=== PATIENT | male | born 1980 | race Caucasian/White ===

== ENCOUNTER 2016-12-25 20:39 | Emergency (ER) | payer MEDICAID ==
[~2016-12-25] VITALS: Ht 170.2 cm; Wt 72.6 kg
[~2016-12-25 20:39] MED LIST: BEN50 PO; OMEP20CA10 PO; PARO12.520 PO; SER100 PO
[2016-12-25 20:40] VITALS: BP_SYST 119
[2016-12-25] MEDS ORDERED: KETOROLAC TROMETHAMINE 60 MG/2 ML VIAL IM ONE (21:15)
[2016-12-25 22:18] VITALS: BP_SYST 119
== END 2016-12-25 22:18 | disposition home or self-care (01) ==
LOC: SED 20:39
DX: S23.3XXA Sprain of ligaments of thoracic spine, initial encounter (principal); S29.011A Strain of muscle and tendon of front wall of thorax, initial encounter; Z88.6 Allergy status to analgesic agent; Z79.899 Other long term (current) drug therapy; Z98.890 Other specified postprocedural states; V89.2XXA Person injured in unspecified motor-vehicle accident, traffic, initial encounter; Y93.89 Activity, other specified; Y92.89 Other specified places as the place of occurrence of the external cause; Y99.8 Other external cause status
CPT/HCPCS: 71010; 72072; 96372; 99284; J1885

== ENCOUNTER 2017-09-03 13:32 | Inpatient (IN) | payer MEDICAID ==
[~2017-09-03] VITALS: Ht 170.2 cm; Wt 83.9 kg
[~2017-09-03 13:32] MED LIST changes: +DEXAMETHASONE SOD PHOSPHATE 4 MG/ML VIAL IVP ONE; +EMTR1TAB14 PO; +FURO-150 PO; +GLYCOPYRROLATE 0.2 MG/ML VIAL IJ ONE; +KETOROLAC TROMETHAMINE 30 MG VIAL IVP ONE; +LIDOCAINE 1% 10 MG/ML, 20 ML MDV INJ ONE; +LR 1,000 ML IV.SOLN IV ONE; +MIDAZOLAM HCL 5 MG/5 ML VIAL IVP ONE; +MORPHINE SULFATE 10 MG/ML VIAL IVP ONE; +NEOSTIGMINE METHYLSULFATE 1 MG/ML, 10 ML VIAL IVP ONE; +NS IRRIG SOLN 1000 ML IR ONE; +ONDANSETRON HCL 4 MG/2 ML VIAL IVP ONE; -PARO12.520 PO; +ROCURONIUM BROMIDE 10 MG/ML (ZEMURON) IV ONE; +SEVOFLURANE 15 MIN GAS INH ONE; +SUCCINYLCHOLINE CHLORIDE 20 MG/ML(QUELICIN) IVP ONE; +VIS25 PO; +cefOXitin SODIUM 2 GM/VIAL (MEFOXIN) IV ONE; +fentaNYL CITRATE 250 MCG/5 ML AMP IV ONE
[2017-09-03 13:40] VITALS: BP_SYST 116
[2017-09-03] MEDS ORDERED: ONDANSETRON HCL 4 MG/2 ML VIAL IVP ONE ×2 (14:15→17:15)
[2017-09-03] MEDS ORDERED: MORPHINE 4 MG/ML INJ. SYRINGE IVP ONE (14:15)
[2017-09-03] MEDS ORDERED: NACL 0.9% 1,000 ML IV ONE ×2 (15:00→23:15)
[2017-09-03 15:12] LABS: BASOPHILS # (AUTO) 0.1 K/uL (0.0-0.2); BASOPHILS % (AUTO) 0.8 % (0.0-2.0); EOSINOPHILS % (AUTO) 0.2 % (0.0-4.0); HEMATOCRIT 48.8 % (36-54); HEMOGLOBIN 15.9 g/dL (14.0-18.0); LYMPHOCYTES # (AUTO) 1.1 K/uL (1.0-5.5); LYMPHOCYTES % (AUTO) 7.8 % (20.5-51.5); MEAN CORPUSCULAR HEMOGLOBIN 29 pg (27-31); MEAN CORPUSCULAR HGB CONC 33 % (32-36); MEAN CORPUSCULAR VOLUME 89 fL (79.0-98.0); MONOCYTES # (AUTO) 0.8 K/uL (0.0-1.0); MONOCYTES % (AUTO) 5.4 % (1.7-9.3); NEUTROPHILS # (AUTO) 12.4 K/uL (1.8-7.7); NEUTROPHILS % (AUTO) 85.8 % (40.0-70.0); PLATELET COUNT (AUTO) 355 K/uL (130-430); RED BLOOD CELL COUNT(AUTO) 5.47 MIL/uL (4.2-6.2); RED CELL DISTRIBUTION WIDTH 17.2 % (9.0-15.0); WHITE BLOOD COUNT (AUTO) 14.4 K/uL (4.8-10.8)
[2017-09-03 15:25] LABS: CALCIUM 10.3 mg/dL (8.4-11.0); POTASSIUM 3.9 mmol/L (3.5-5.1)
[2017-09-03 15:29] LABS: TOTAL BILIRUBIN 0.5 mg/dL (0.0-1.0)
[2017-09-03 15:32] LABS: BILIRUBIN,URINE NEGATIVE (NEGATIVE); BLOOD, URINE NEGATIVE (NEGATIVE); CLARITY/URINE CLEAR (CLEAR); COLOR,URINE YELLOW (YELLOW); GLUCOSE,URINE NEGATIVE (NEGATIVE); KETONES,URINE NEGATIVE (NEGATIVE); LEUKOCYTE ESTERASE ,URINE NEGATIVE (NEGATIVE); NITRITE, URINE NEGATIVE (NEGATIVE); PH,URINE 8.5 (5.0-8.0); PROTEIN URINE 2+ (NEGATIVE)
[2017-09-03 15:33] LABS: PROTHROMBIN TIME 10.3 SECS (9.5-12.5)
[2017-09-03 15:35] LABS: BACTERIA,URINE RARE /HPF (None Seen); RBC,URINE 0-3 /HPF (0-3); WBC,URINE 0-3 /HPF (0-3)
[2017-09-03] MEDS ORDERED: IOHEXOL 100 ML IV ONE (16:01)
[2017-09-03] MEDS ORDERED: CYM30 PO (16:03)
[2017-09-03] MEDS ORDERED: EMTR1TAB12 PO (16:03)
[2017-09-03] MEDS ORDERED: LORazepam 2 MG/ML VIAL (FOR ER USE) IVP ONE (17:00)
[2017-09-03] MEDS ORDERED: MORPHINE 2 MG/ML INJ. SYRINGE IVP ONE (17:00)
[2017-09-03] MEDS ORDERED: METOCLOPRAMIDE HCL 10 MG/2 ML VIAL IVP ONE (18:00)
[2017-09-03 18:30] VITALS: BP_SYST 129
[2017-09-03] MEDS ORDERED: MORPHINE 4 MG/ML INJ. SYRINGE IVP PRN ×2 (19:30)
[2017-09-03 20:00] VITALS: BP_SYST 146
[2017-09-03] MEDS: ONDANSETRON HCL 4 MG/2 ML VIAL IVP PRN (20:09)
[2017-09-03] MEDS: D5LR 1,000 ML IV SCH (20:18)
[2017-09-03] MEDS: DIPHENHYDRAMINE INJ 50 MG/ML VIAL IVP SCH (21:56)
[2017-09-04] MEDS ORDERED: PIPERACILLIN/TAZOBACTAM 3.375 GM/VIAL (ZOSYN) IV ONE (00:18)
[2017-09-04] MEDS: PIPERACILLIN/TAZO 3.375/DEX-IS 50 ML IV SCH ×3 (00:24→11:35)
[2017-09-04] MEDS: ONDANSETRON HCL 4 MG/2 ML VIAL IVP PRN ×3 (00:28→09:20)
[2017-09-04] MEDS: MORPHINE 4 MG/ML INJ. SYRINGE IVP PRN ×5 (00:28→21:32)
[2017-09-04 01:58] VITALS: BP_SYST 124
[2017-09-04] MEDS: D5LR 1,000 ML IV SCH ×4 (03:49→21:45)
[2017-09-04 06:49] LABS: CALCIUM 8.8 mg/dL (8.4-11.0); CREATININE 0.87 mg/dL (0.55-1.30); POTASSIUM 4.2 mmol/L (3.5-5.1)
[2017-09-04 07:15] LABS: BASOPHILS % (AUTO) 0.1 % (0.0-2.0); EOSINOPHILS % (AUTO) 0.1 % (0.0-4.0); HEMATOCRIT 46.1 % (36-54); HEMOGLOBIN 15.1 g/dL (14.0-18.0); LYMPHOCYTES # (AUTO) 0.7 K/uL (1.0-5.5); LYMPHOCYTES % (AUTO) 3.4 % (20.5-51.5); MEAN CORPUSCULAR HEMOGLOBIN 29 pg (27-31); MEAN CORPUSCULAR HGB CONC 33 % (32-36); MEAN CORPUSCULAR VOLUME 90 fL (79.0-98.0); MONOCYTES # (AUTO) 1.2 K/uL (0.0-1.0); NEUTROPHILS # (AUTO) 18.8 K/uL (1.8-7.7); PLATELET COUNT (AUTO) 344 K/uL (130-430); RED BLOOD CELL COUNT(AUTO) 5.13 MIL/uL (4.2-6.2); RED CELL DISTRIBUTION WIDTH 17.2 % (9.0-15.0); WHITE BLOOD COUNT (AUTO) 20.7 K/uL (4.8-10.8)
[2017-09-04 08:00] VITALS: BP_SYST 128
[2017-09-04] MEDS ORDERED: GASTROGRAFIN 120 ML ONE (08:09)
[2017-09-04 10:31] LABS: NEUTROPHILS % (AUTO) 90.4 % (40.0-70.0)
[2017-09-04 12:28] VITALS: BP_SYST 131
[2017-09-04 16:00] VITALS: BP_SYST 130
[2017-09-04] MEDS ORDERED: KETOROLAC TROMETHAMINE 30 MG VIAL IM ONE (16:00)
[2017-09-04] MEDS ORDERED: fentaNYL CITRATE/PF 100 MCG/2 ML AMP IVP PRN (16:00)
[2017-09-04] MEDS ORDERED: MIDAZOLAM HCL 5 MG/5 ML VIAL IVP PRN (16:00)
[2017-09-04] MEDS ORDERED: NALOXONE HCL 0.4 MG/ML AMP (NARCAN) IVP ONE (16:00)
[2017-09-04] MEDS ORDERED: HYDROmorphone 1 MG INJ. 1 MG/ML AMPUL IVP ONE (16:00)
[2017-09-04] MEDS ORDERED: ONDANSETRON HCL 4 MG/2 ML VIAL IVP ONE (16:00)
[2017-09-04] MEDS: fentaNYL CITRATE/PF 100 MCG/2 ML AMP ONE ×2 (16:05→16:25)
[2017-09-04 17:54] VITALS: BP_SYST 143
[2017-09-04] MEDS: DIPHENHYDRAMINE INJ 50 MG/ML VIAL IVP SCH (21:29)
[2017-09-04] MEDS: cefOXitin SODIUM 2 GM in D5W 100 ML IV SCH (21:42)
[2017-09-04] MEDS: LORazepam 2 MG/ML VIAL IVP PRN (23:55)
[2017-09-05 00:12] VITALS: BP_SYST 127
[2017-09-05] MEDS: MORPHINE 4 MG/ML INJ. SYRINGE IVP PRN ×6 (01:37→21:07)
[2017-09-05] MEDS: ACETAMINOPHEN 650 MG SUPP.RECT RC PRN ×2 (02:52→16:22)
[2017-09-05 04:12] VITALS: BP_SYST 124
[2017-09-05] MEDS: cefOXitin SODIUM 2 GM in D5W 100 ML IV SCH ×3 (05:56→21:21)
[2017-09-05] MEDS: LORazepam 2 MG/ML VIAL IVP PRN (05:56)
[2017-09-05] MEDS: D5LR 1,000 ML IV SCH ×3 (05:56→18:08)
[2017-09-05 08:00] VITALS: BP_SYST 128
[2017-09-05 10:47] LABS: HEMATOCRIT 33.5 % (36-54); HEMOGLOBIN 11.2 g/dL (14.0-18.0); MEAN CORPUSCULAR HEMOGLOBIN 30 pg (27-31); MEAN CORPUSCULAR HGB CONC 33 % (32-36); MEAN CORPUSCULAR VOLUME 90 fL (79.0-98.0); PLATELET COUNT (AUTO) 287 K/uL (130-430); RED BLOOD CELL COUNT(AUTO) 3.71 MIL/uL (4.2-6.2); RED CELL DISTRIBUTION WIDTH 17.6 % (9.0-15.0)
[2017-09-05 11:11] LABS: WHITE BLOOD COUNT (AUTO) 12.9 K/uL (4.8-10.8)
[2017-09-05 11:18] LABS: CALCIUM 8.1 mg/dL (8.4-11.0); CREATININE 1.07 mg/dL (0.55-1.30)
[2017-09-05 11:24] LABS: ALBUMIN 2.3 g/dL (3.4-4.8); TOTAL BILIRUBIN 0.6 mg/dL (0.0-1.0)
[2017-09-05 11:56] LABS: BAND % (MANUAL) 11 % (0-6); BASOPHILS % (MANUAL) 0 % (0-2); EOSINOPHILS % (MANUAL) 1 % (0-7); LYMPHOCYTES % (MANUAL) 9 % (20-46); MONOCYTES % (MANUAL) 6 % (0-11)
[2017-09-05 12:35] VITALS: BP_SYST 123
[2017-09-05] MEDS ORDERED: DILTIAZEM HCL 25 MG/5 ML VIAL IVP ONE (15:45)
[2017-09-05 16:00] VITALS: BP_SYST 128
[2017-09-05 16:06] LABS: FREE T4 (FREE THYROXINE) 1.4 ng/dl (0.8-1.5); THYROID STIMULATING HORMONE 2.01 uIu/mL (0.36-3.74)
[2017-09-05] MEDS ORDERED: TENOFOVIR PO SCH (17:45)
[2017-09-05] MEDS ORDERED: EMTRICITABINE PO SCH (17:45)
[2017-09-05] MEDS ORDERED: [UNRECOGNIZED DRUG - OTHER] PO SCH (17:45)
[2017-09-05] MEDS: MUPIROCIN 2% TOPICAL OINTMENT 22 GM NS SCH ×2 (18:08→21:13)
[2017-09-05] MEDS: VANCOMYCIN HCL 1,250 MG in NS 250 ML IV SCH (18:09)
[2017-09-05] MEDS: METOPROLOL TARTRATE 25 MG TABLET PO SCH ×2 (18:32→21:10)
[2017-09-05] MEDS: DULoxetine HCL 30 MG CAPSULE.DR (CYMBALTA) PO SCH (18:32)
[2017-09-05] MEDS: FAMOTIDINE PF 20 MG/2 ML VIAL IVP SCH ×2 (18:33→21:14)
[2017-09-05 20:30] VITALS: BP_SYST 116
[2017-09-05] MEDS: DIPHENHYDRAMINE INJ 50 MG/ML VIAL IVP SCH (21:07)
[2017-09-05] MEDS: OMEPRAZOLE 20 MG CAPSULE.DR (PriLOSEC) PO SCH (21:09)
[2017-09-05] MEDS: FUROSEMIDE 20 MG TABLET PO SCH (21:09)
[2017-09-05] MEDS: QUEtiapine FUMARATE 100 MG TABLET PO SCH (21:09)
[2017-09-05] MEDS: DIPHENHYDRAMINE HCL 50 MG CAPSULE PO SCH (21:10)
[2017-09-06 00:13] VITALS: BP_SYST 118
[2017-09-06] MEDS: D5LR 1,000 ML IV SCH ×4 (01:05→21:34)
[2017-09-06] MEDS: VANCOMYCIN HCL 1,250 MG in NS 250 ML IV SCH ×2 (06:00→18:00)
[2017-09-06] MEDS: cefOXitin SODIUM 2 GM in D5W 100 ML IV SCH ×3 (06:00→21:48)
[2017-09-06 07:25] LABS: BASOPHILS % (AUTO) 0.3 % (0.0-2.0); EOSINOPHILS # (AUTO) 0.1 K/uL (0.0-0.4); EOSINOPHILS % (AUTO) 1.8 % (0.0-4.0); HEMATOCRIT 26.9 % (36-54); HEMOGLOBIN 9.1 g/dL (14.0-18.0); LYMPHOCYTES % (AUTO) 12.8 % (20.5-51.5); MEAN CORPUSCULAR HEMOGLOBIN 31 pg (27-31); MEAN CORPUSCULAR HGB CONC 34 % (32-36); MEAN CORPUSCULAR VOLUME 90 fL (79.0-98.0); MONOCYTES # (AUTO) 1.3 K/uL (0.0-1.0); MONOCYTES % (AUTO) 17.2 % (1.7-9.3); NEUTROPHILS # (AUTO) 5.2 K/uL (1.8-7.7); NEUTROPHILS % (AUTO) 67.9 % (40.0-70.0); PLATELET COUNT (AUTO) 237 K/uL (130-430); RED BLOOD CELL COUNT(AUTO) 2.99 MIL/uL (4.2-6.2); RED CELL DISTRIBUTION WIDTH 16.7 % (9.0-15.0); WHITE BLOOD COUNT (AUTO) 7.6 K/uL (4.8-10.8)
[2017-09-06 07:26] LABS: CALCIUM 8.3 mg/dL (8.4-11.0); CREATININE 0.92 mg/dL (0.55-1.30); POTASSIUM 3.6 mmol/L (3.5-5.1)
[2017-09-06 07:30] LABS: INR 1.1 (0.80-1.20)
[2017-09-06 08:00] VITALS: BP_SYST 120
[2017-09-06] MEDS: FAMOTIDINE PF 20 MG/2 ML VIAL IVP SCH ×2 (09:00→21:41)
[2017-09-06] MEDS: DULoxetine HCL 30 MG CAPSULE.DR (CYMBALTA) PO SCH (09:34)
[2017-09-06] MEDS: MUPIROCIN 2% TOPICAL OINTMENT 22 GM NS SCH ×2 (09:34→21:42)
[2017-09-06] MEDS: METOPROLOL TARTRATE 25 MG TABLET PO SCH ×3 (09:35→21:00)
[2017-09-06] MEDS: FUROSEMIDE 20 MG TABLET PO SCH ×2 (09:35→21:00)
[2017-09-06] MEDS: MORPHINE 4 MG/ML INJ. SYRINGE IVP PRN ×2 (10:05→21:15)
[2017-09-06 11:54] VITALS: BP_SYST 107
[2017-09-06] MEDS ORDERED: MULTIVITAMINS TAB 1 TABLET PO ONE (15:30)
[2017-09-06 16:00] VITALS: BP_SYST 122
[2017-09-06] MEDS: SOD FERRIC GLUC COMPLEX/SUC 125 MG in NS 100 ML IV SCH (16:00)
[2017-09-06 20:00] VITALS: BP_SYST 98
[2017-09-06] MEDS: DIPHENHYDRAMINE INJ 50 MG/ML VIAL IVP SCH (21:40)
[2017-09-06] MEDS: DIPHENHYDRAMINE HCL 50 MG CAPSULE PO SCH (21:42)
[2017-09-06] MEDS: QUEtiapine FUMARATE 100 MG TABLET PO SCH (21:43)
[2017-09-06] MEDS: MULTIVITAMINS TAB 1 TABLET PO SCH (21:43)
[2017-09-06] MEDS: OMEPRAZOLE 20 MG CAPSULE.DR (PriLOSEC) PO SCH (21:43)
[2017-09-07] MEDS: D5LR 1,000 ML IV SCH ×3 (03:45→17:58)
[2017-09-07] MEDS: MORPHINE 4 MG/ML INJ. SYRINGE IVP PRN ×4 (04:05→20:07)
[2017-09-07 04:28] VITALS: BP_SYST 114
[2017-09-07] MEDS: cefOXitin SODIUM 2 GM in D5W 100 ML IV SCH ×4 (05:07→22:47)
[2017-09-07] MEDS: VANCOMYCIN HCL 1,250 MG in NS 250 ML IV SCH ×2 (06:00→17:58)
[2017-09-07 07:35] LABS: BASOPHILS % (AUTO) 0.2 % (0.0-2.0); EOSINOPHILS # (AUTO) 0.1 K/uL (0.0-0.4); EOSINOPHILS % (AUTO) 1.3 % (0.0-4.0); HEMATOCRIT 29.4 % (36-54); HEMOGLOBIN 9.9 g/dL (14.0-18.0); LYMPHOCYTES # (AUTO) 0.4 K/uL (1.0-5.5); LYMPHOCYTES % (AUTO) 6.7 % (20.5-51.5); MEAN CORPUSCULAR HEMOGLOBIN 30 pg (27-31); MEAN CORPUSCULAR HGB CONC 34 % (32-36); MEAN CORPUSCULAR VOLUME 90 fL (79.0-98.0); MONOCYTES # (AUTO) 1.1 K/uL (0.0-1.0); MONOCYTES % (AUTO) 17.7 % (1.7-9.3); NEUTROPHILS # (AUTO) 4.5 K/uL (1.8-7.7); NEUTROPHILS % (AUTO) 74.1 % (40.0-70.0); PLATELET COUNT (AUTO) 293 K/uL (130-430); RED BLOOD CELL COUNT(AUTO) 3.27 MIL/uL (4.2-6.2); RED CELL DISTRIBUTION WIDTH 16.3 % (9.0-15.0); WHITE BLOOD COUNT (AUTO) 6.1 K/uL (4.8-10.8)
[2017-09-07 07:55] LABS: CALCIUM 8.6 mg/dL (8.4-11.0); CREATININE 0.79 mg/dL (0.55-1.30); POTASSIUM 3.2 mmol/L (3.5-5.1)
[2017-09-07 08:10] VITALS: BP_SYST 115
[2017-09-07] MEDS: MULTIVITAMINS TAB 1 TABLET PO SCH ×2 (09:28→20:07)
[2017-09-07] MEDS: MUPIROCIN 2% TOPICAL OINTMENT 22 GM NS SCH ×2 (09:28→20:47)
[2017-09-07] MEDS: FUROSEMIDE 20 MG TABLET PO SCH ×2 (09:28→20:07)
[2017-09-07] MEDS: DULoxetine HCL 30 MG CAPSULE.DR (CYMBALTA) PO SCH (09:28)
[2017-09-07] MEDS: METOPROLOL TARTRATE 25 MG TABLET PO SCH ×3 (09:29→20:10)
[2017-09-07] MEDS: FAMOTIDINE PF 20 MG/2 ML VIAL IVP SCH ×2 (10:33→20:45)
[2017-09-07] MEDS: traMADol HCL HCL 50 MG TABLET (ULTRAM) PO PRN (11:56)
[2017-09-07 12:00] VITALS: BP_SYST 106; BP_SYST 130
[2017-09-07] MEDS: SOD FERRIC GLUC COMPLEX/SUC 125 MG in NS 100 ML IV SCH (15:32)
[2017-09-07 16:00] VITALS: BP_SYST 132
[2017-09-07 17:31] VITALS: BP_SYST 114
[2017-09-07] MEDS ORDERED: POTASSIUM CHLORIDE 20 MEQ TAB.PRT.SR PO ONE (18:00)
[2017-09-07] MEDS: DIPHENHYDRAMINE INJ 50 MG/ML VIAL IVP SCH (20:06)
[2017-09-07] MEDS: OMEPRAZOLE 20 MG CAPSULE.DR (PriLOSEC) PO SCH (20:10)
[2017-09-07] MEDS: QUEtiapine FUMARATE 100 MG TABLET PO SCH (20:10)
[2017-09-07 20:12] VITALS: BP_SYST 125
[2017-09-07] MEDS: DIPHENHYDRAMINE HCL 50 MG CAPSULE PO SCH (20:45)
[2017-09-07] MEDS: POTASSIUM CHLORIDE 20 MEQ TAB.PRT.SR PO SCH (20:46)
[2017-09-08 01:12] VITALS: BP_SYST 126
[2017-09-08] MEDS: MORPHINE 4 MG/ML INJ. SYRINGE IVP PRN (02:28)
[2017-09-08] MEDS: D5LR 1,000 ML IV SCH ×2 (02:29→23:11)
[2017-09-08] MEDS: traMADol HCL HCL 50 MG TABLET (ULTRAM) PO PRN (05:08)
[2017-09-08] MEDS: VANCOMYCIN HCL 1,250 MG in NS 250 ML IV SCH ×2 (05:09→19:00)
[2017-09-08] MEDS: cefOXitin SODIUM 2 GM in D5W 100 ML IV SCH ×3 (06:15→23:04)
[2017-09-08 07:50] VITALS: BP_SYST 142
[2017-09-08] MEDS: DULoxetine HCL 30 MG CAPSULE.DR (CYMBALTA) PO SCH (08:54)
[2017-09-08] MEDS: POTASSIUM CHLORIDE 20 MEQ TAB.PRT.SR PO SCH ×2 (08:54→22:15)
[2017-09-08] MEDS: MULTIVITAMINS TAB 1 TABLET PO SCH ×2 (08:54→21:52)
[2017-09-08] MEDS: MUPIROCIN 2% TOPICAL OINTMENT 22 GM NS SCH ×2 (08:55→23:12)
[2017-09-08] MEDS: METOPROLOL TARTRATE 25 MG TABLET PO SCH ×3 (08:55→21:54)
[2017-09-08] MEDS: FUROSEMIDE 20 MG TABLET PO SCH ×2 (08:55→21:54)
[2017-09-08] MEDS: FAMOTIDINE PF 20 MG/2 ML VIAL IVP SCH ×2 (09:00→21:52)
[2017-09-08 13:13] VITALS: BP_SYST 139
[2017-09-08] MEDS: TRUVADA PO SCH (14:00)
[2017-09-08 16:14] VITALS: BP_SYST 133
[2017-09-08 16:49] LABS: RED CELL DISTRIBUTION WIDTH 15.9 % (9.0-15.0)
[2017-09-08 16:53] LABS: CALCIUM 8.5 mg/dL (8.4-11.0); CREATININE 1.04 mg/dL (0.55-1.30); POTASSIUM 3.6 mmol/L (3.5-5.1)
[2017-09-08 17:01] LABS: EOSINOPHILS % (AUTO) 0.2 % (0.0-4.0); LYMPHOCYTES # (AUTO) 0.5 K/uL (1.0-5.5); LYMPHOCYTES % (AUTO) 2.6 % (20.5-51.5); MONOCYTES # (AUTO) 2.7 K/uL (0.0-1.0); MONOCYTES % (AUTO) 13.1 % (1.7-9.3); NEUTROPHILS # (AUTO) 17.3 K/uL (1.8-7.7); WHITE BLOOD COUNT (AUTO) 20.5 K/uL (4.8-10.8)
[2017-09-08 17:02] LABS: HEMATOCRIT 28.7 % (36-54); HEMOGLOBIN 9.6 g/dL (14.0-18.0); MEAN CORPUSCULAR HEMOGLOBIN 30 pg (27-31); MEAN CORPUSCULAR HGB CONC 34 % (32-36); MEAN CORPUSCULAR VOLUME 90 fL (79.0-98.0); PLATELET COUNT (AUTO) 327 K/uL (130-430)
[2017-09-08 17:25] LABS: NEUTROPHILS % (AUTO) 84.1 % (40.0-70.0)
[2017-09-08] MEDS: SOD FERRIC GLUC COMPLEX/SUC 125 MG in NS 100 ML IV SCH (17:33)
[2017-09-08] MEDS: OXYCODONE/ACETAMINOPHEN 5-325 TABLET PO PRN (19:06)
[2017-09-08] MEDS: DIPHENHYDRAMINE HCL 50 MG CAPSULE PO SCH (21:00)
[2017-09-08] MEDS: OMEPRAZOLE 20 MG CAPSULE.DR (PriLOSEC) PO SCH (22:15)
[2017-09-08] MEDS: QUEtiapine FUMARATE 100 MG TABLET PO SCH (22:16)
[2017-09-08] MEDS: DIPHENHYDRAMINE INJ 50 MG/ML VIAL IVP SCH (23:05)
[2017-09-09 00:22] VITALS: BP_SYST 116
[2017-09-09] MEDS: cefOXitin SODIUM 2 GM in D5W 100 ML IV SCH (05:32)
[2017-09-09] MEDS: VANCOMYCIN HCL 1,250 MG in NS 250 ML IV SCH ×2 (06:31→18:14)
[2017-09-09 07:02] LABS: CALCIUM 8.4 mg/dL (8.4-11.0); CREATININE 1.16 mg/dL (0.55-1.30)
[2017-09-09 07:25] LABS: POTASSIUM 2.9 mmol/L (3.5-5.1)
[2017-09-09 07:48] LABS: BASOPHILS % (AUTO) 0.2 % (0.0-2.0); EOSINOPHILS # (AUTO) 0.4 K/uL (0.0-0.4); HEMATOCRIT 27.7 % (36-54); HEMOGLOBIN 9.2 g/dL (14.0-18.0); LYMPHOCYTES # (AUTO) 0.5 K/uL (1.0-5.5); LYMPHOCYTES % (AUTO) 2.4 % (20.5-51.5); MEAN CORPUSCULAR HEMOGLOBIN 30 pg (27-31); MEAN CORPUSCULAR HGB CONC 33 % (32-36); MEAN CORPUSCULAR VOLUME 90 fL (79.0-98.0); MONOCYTES # (AUTO) 1.5 K/uL (0.0-1.0); MONOCYTES % (AUTO) 7.6 % (1.7-9.3); NEUTROPHILS # (AUTO) 17.9 K/uL (1.8-7.7); NEUTROPHILS % (AUTO) 87.8 % (40.0-70.0); PLATELET COUNT (AUTO) 131 K/uL (130-430); RED BLOOD CELL COUNT(AUTO) 3.08 MIL/uL (4.2-6.2)
[2017-09-09 08:10] VITALS: BP_SYST 135
[2017-09-09] MEDS: METOPROLOL TARTRATE 25 MG TABLET PO SCH ×3 (08:11→22:06)
[2017-09-09] MEDS: DULoxetine HCL 30 MG CAPSULE.DR (CYMBALTA) PO SCH (08:11)
[2017-09-09] MEDS: MULTIVITAMINS TAB 1 TABLET PO SCH ×2 (08:11→22:08)
[2017-09-09] MEDS: FAMOTIDINE PF 20 MG/2 ML VIAL IVP SCH ×2 (08:12→21:00)
[2017-09-09] MEDS: FUROSEMIDE 20 MG TABLET PO SCH ×2 (08:12→22:08)
[2017-09-09] MEDS: POTASSIUM CHLORIDE 20 MEQ TAB.PRT.SR PO SCH ×2 (08:12→22:07)
[2017-09-09] MEDS: MORPHINE 4 MG/ML INJ. SYRINGE IVP PRN ×2 (08:13→16:07)
[2017-09-09 08:16] LABS: WHITE BLOOD COUNT (AUTO) 20.3 K/uL (4.8-10.8)
[2017-09-09] MEDS: TRUVADA PO SCH (08:20)
[2017-09-09] MEDS ORDERED: POTASSIUM CHLORIDE 20 MEQ/PKT PACKET PO ONE (10:30)
[2017-09-09 12:00] VITALS: BP_SYST 133
[2017-09-09] MEDS: OXYCODONE/ACETAMINOPHEN 5-325 TABLET PO PRN ×2 (13:00→22:07)
[2017-09-09] MEDS: MUPIROCIN 2% TOPICAL OINTMENT 22 GM NS SCH ×2 (13:01→23:24)
[2017-09-09] MEDS ORDERED: PIPERACILLIN/TAZO 4.5GM/DEX-IS 100 ML IV SCH (14:00)
[2017-09-09] MEDS ORDERED: POTASSIUM CHLORIDE 20 MEQ TAB.PRT.SR PO ONE (15:45)
[2017-09-09 16:00] VITALS: BP_SYST 135
[2017-09-09] MEDS: SOD FERRIC GLUC COMPLEX/SUC 125 MG in NS 100 ML IV SCH (16:27)
[2017-09-09] MEDS: D5LR 1,000 ML IV SCH (18:37)
[2017-09-09] MEDS: PIPERACILLIN/TAZO 4.5GM/DEX-IS 100 ML IV SCH (21:13)
[2017-09-09] MEDS: QUEtiapine FUMARATE 100 MG TABLET PO SCH (22:06)
[2017-09-09] MEDS: OMEPRAZOLE 20 MG CAPSULE.DR (PriLOSEC) PO SCH (22:08)
[2017-09-09] MEDS: DIPHENHYDRAMINE INJ 50 MG/ML VIAL IVP SCH (23:23)
[2017-09-09] MEDS: DIPHENHYDRAMINE HCL 50 MG CAPSULE PO SCH (23:40)
[2017-09-10] VITALS: BP_SYST 114
[2017-09-10] MEDS: PIPERACILLIN/TAZO 4.5GM/DEX-IS 100 ML IV SCH ×3 (02:57→18:23)
[2017-09-10] MEDS: MORPHINE 4 MG/ML INJ. SYRINGE IVP PRN ×3 (03:10→16:41)
[2017-09-10] MEDS: VANCOMYCIN HCL 1,250 MG in NS 250 ML IV SCH ×2 (05:11→18:52)
[2017-09-10] MEDS: D5LR 1,000 ML IV SCH ×2 (05:11→18:23)
[2017-09-10 06:56] LABS: CALCIUM 8.2 mg/dL (8.4-11.0); CREATININE 0.79 mg/dL (0.55-1.30); POTASSIUM 3.8 mmol/L (3.5-5.1)
[2017-09-10] MEDS: OXYCODONE/ACETAMINOPHEN 5-325 TABLET PO PRN (06:56)
[2017-09-10 07:21] LABS: BASOPHILS % (AUTO) 0.1 % (0.0-2.0); EOSINOPHILS # (AUTO) 0.5 K/uL (0.0-0.4); EOSINOPHILS % (AUTO) 2.3 % (0.0-4.0); HEMATOCRIT 26.6 % (36-54); HEMOGLOBIN 8.9 g/dL (14.0-18.0); LYMPHOCYTES # (AUTO) 0.6 K/uL (1.0-5.5); LYMPHOCYTES % (AUTO) 2.8 % (20.5-51.5); MEAN CORPUSCULAR HEMOGLOBIN 31 pg (27-31); MEAN CORPUSCULAR HGB CONC 34 % (32-36); MEAN CORPUSCULAR VOLUME 91 fL (79.0-98.0); MONOCYTES # (AUTO) 1.6 K/uL (0.0-1.0); MONOCYTES % (AUTO) 7.8 % (1.7-9.3); NEUTROPHILS # (AUTO) 18.4 K/uL (1.8-7.7); PLATELET COUNT (AUTO) 388 K/uL (130-430); RED BLOOD CELL COUNT(AUTO) 2.92 MIL/uL (4.2-6.2); RED CELL DISTRIBUTION WIDTH 16.3 % (9.0-15.0); WHITE BLOOD COUNT (AUTO) 21.1 K/uL (4.8-10.8)
[2017-09-10 07:31] VITALS: BP_SYST 108
[2017-09-10] MEDS: MULTIVITAMINS TAB 1 TABLET PO SCH ×2 (08:18→22:32)
[2017-09-10] MEDS: FUROSEMIDE 20 MG TABLET PO SCH ×2 (08:18→22:33)
[2017-09-10] MEDS: DULoxetine HCL 30 MG CAPSULE.DR (CYMBALTA) PO SCH (08:18)
[2017-09-10] MEDS: POTASSIUM CHLORIDE 20 MEQ TAB.PRT.SR PO SCH ×2 (08:18→22:32)
[2017-09-10] MEDS: METOPROLOL TARTRATE 25 MG TABLET PO SCH ×3 (08:19→22:31)
[2017-09-10] MEDS: TRUVADA PO SCH (08:19)
[2017-09-10] MEDS: FAMOTIDINE PF 20 MG/2 ML VIAL IVP SCH (09:00)
[2017-09-10 11:27] VITALS: BP_SYST 126
[2017-09-10] MEDS ORDERED: LACTOBACILLUS RHAMNOSUS GG 1 CAP CAPSULE PO ONE (13:15)
[2017-09-10] MEDS ORDERED: PANTOPRAZOLE SODIUM 40 MG/VIAL (PROTONIX) IVP ONE (13:15)
[2017-09-10 14:32] VITALS: BP_SYST 126
[2017-09-10] MEDS: traMADol HCL HCL 50 MG TABLET (ULTRAM) PO PRN (15:44)
[2017-09-10] MEDS: SOD FERRIC GLUC COMPLEX/SUC 125 MG in NS 100 ML IV SCH (15:46)
[2017-09-10 16:18] VITALS: BP_SYST 136
[2017-09-10 20:48] VITALS: BP_SYST 134
[2017-09-10] MEDS: DIPHENHYDRAMINE HCL 50 MG CAPSULE PO SCH (21:00)
[2017-09-10] MEDS: LACTOBACILLUS RHAMNOSUS GG 1 CAP CAPSULE PO SCH (22:32)
[2017-09-10] MEDS: QUEtiapine FUMARATE 100 MG TABLET PO SCH (22:32)
[2017-09-10] MEDS: GABAPENTIN 100 MG CAPSULE PO SCH (22:32)
[2017-09-10] MEDS: ONDANSETRON HCL 4 MG/2 ML VIAL IVP PRN (22:33)
[2017-09-10] MEDS: PANTOPRAZOLE SODIUM 40 MG/VIAL (PROTONIX) IVP SCH (22:33)
[2017-09-10] MEDS: OXYCODONE/ACETAMINOPHEN *10*mg/325 mg TABLET PO PRN (22:51)
[2017-09-10] MEDS: DIPHENHYDRAMINE INJ 50 MG/ML VIAL IVP SCH (22:51)
[2017-09-11 01:28] VITALS: BP_SYST 142
[2017-09-11] MEDS: PIPERACILLIN/TAZO 4.5GM/DEX-IS 100 ML IV SCH ×2 (03:00→13:54)
[2017-09-11] MEDS: VANCOMYCIN HCL 1,250 MG in NS 250 ML IV SCH (05:57)
[2017-09-11 07:29] LABS: BASOPHILS # (AUTO) 0.1 K/uL (0.0-0.2); BASOPHILS % (AUTO) 0.4 % (0.0-2.0); EOSINOPHILS # (AUTO) 0.4 K/uL (0.0-0.4); EOSINOPHILS % (AUTO) 2.7 % (0.0-4.0); HEMATOCRIT 27.5 % (36-54); HEMOGLOBIN 9.2 g/dL (14.0-18.0); LYMPHOCYTES % (AUTO) 6.4 % (20.5-51.5); MEAN CORPUSCULAR HEMOGLOBIN 30 pg (27-31); MEAN CORPUSCULAR HGB CONC 33 % (32-36); MEAN CORPUSCULAR VOLUME 91 fL (79.0-98.0); MONOCYTES # (AUTO) 1.7 K/uL (0.0-1.0); MONOCYTES % (AUTO) 10.9 % (1.7-9.3); NEUTROPHILS # (AUTO) 12.2 K/uL (1.8-7.7); NEUTROPHILS % (AUTO) 79.6 % (40.0-70.0); PLATELET COUNT (AUTO) 464 K/uL (130-430); RED BLOOD CELL COUNT(AUTO) 3.02 MIL/uL (4.2-6.2); WHITE BLOOD COUNT (AUTO) 15.4 K/uL (4.8-10.8)
[2017-09-11 07:39] LABS: CALCIUM 8.2 mg/dL (8.4-11.0); CREATININE 0.97 mg/dL (0.55-1.30); POTASSIUM 3.8 mmol/L (3.5-5.1)
[2017-09-11 08:11] VITALS: BP_SYST 122
[2017-09-11] MEDS: D5LR 1,000 ML IV SCH ×4 (09:22→11:36)
[2017-09-11] MEDS: POTASSIUM CHLORIDE 20 MEQ TAB.PRT.SR PO SCH (09:24)
[2017-09-11] MEDS: METOPROLOL TARTRATE 25 MG TABLET PO SCH ×2 (09:24→15:00)
[2017-09-11] MEDS: MULTIVITAMINS TAB 1 TABLET PO SCH (09:25)
[2017-09-11] MEDS: LACTOBACILLUS RHAMNOSUS GG 1 CAP CAPSULE PO SCH (09:25)
[2017-09-11] MEDS: FUROSEMIDE 20 MG TABLET PO SCH (09:25)
[2017-09-11] MEDS: DULoxetine HCL 30 MG CAPSULE.DR (CYMBALTA) PO SCH (09:25)
[2017-09-11] MEDS: GABAPENTIN 100 MG CAPSULE PO SCH ×2 (09:26→14:59)
[2017-09-11] MEDS: OXYCODONE/ACETAMINOPHEN *10*mg/325 mg TABLET PO PRN ×2 (09:26→15:03)
[2017-09-11] MEDS: TRUVADA PO SCH (09:26)
[2017-09-11] MEDS: PANTOPRAZOLE SODIUM 40 MG/VIAL (PROTONIX) IVP SCH (10:54)
[2017-09-11 12:29] VITALS: BP_SYST 126
[2017-09-11] MEDS ORDERED: HYDR-1189 PO (12:52)
[2017-09-11] MEDS ORDERED: FAMO20TA8 PO (12:53)
[2017-09-11] MEDS ORDERED: MULT240L3 PO (12:56)
[2017-09-11] MEDS ORDERED: METO25TA6 PO (12:57)
[2017-09-11] MEDS ORDERED: DOXY100T2 PO (12:58)
[2017-09-11] MEDS ORDERED: FLA250 PO (12:58)
[2017-09-11] MEDS ORDERED: L.RH1CAP PO (12:59)
[2017-09-11] MEDS ORDERED: MUPI1OIN4 (12:59)
[2017-09-11 13:55] VITALS: BP_SYST 121
== END 2017-09-11 15:32 | disposition home health service (06) | DRG 710 ==
LOC: SED 13:32 → STU 17:42
PROVIDERS: ADMIT Internal Medicine; ATTEND Internal Medicine
PROC: 0DB80ZZ Excision of Small Intestine, Open Approach (ICD-10-PCS; 2017-09-04)
PROC: 0DN80ZZ Release Small Intestine, Open Approach (ICD-10-PCS; 2017-09-04)
PROC: 0DTJ0ZZ Resection of Appendix, Open Approach (ICD-10-PCS; principal; 2017-09-04 13:00)
DX: A41.9 Sepsis, unspecified organism (principal); K56.50 Intestinal adhesions [bands], unspecified as to partial versus complete obstruction; K35.3 Acute appendicitis with localized peritonitis; D62 Acute posthemorrhagic anemia; K56.7 Ileus, unspecified; S36.893A Laceration of other intra-abdominal organs, initial encounter; E87.6 Hypokalemia; K21.9 Gastro-esophageal reflux disease without esophagitis; F32.9 Major depressive disorder, single episode, unspecified; R09.02 Hypoxemia; X58.XXXA Exposure to other specified factors, initial encounter; Y93.89 Activity, other specified; Y92.89 Other specified places as the place of occurrence of the external cause; Y99.8 Other external cause status; Z22.322 Carrier or suspected carrier of Methicillin resistant Staphylococcus aureus; Z53.31 Laparoscopic surgical procedure converted to open procedure; Z79.899 Other long term (current) drug therapy
CPT/HCPCS: 36415; 71045; 74018; 74250-TC; 80048; 80053; 80202-TC; 81000-TC; 83605; 83735-TC; 84439; 84443-TC; 84484; 85007; 85025; 85027; 85610-TC; 85730-TC; 87040-TC; 87081; 88304; 88305; 88307; 93005; 97110-GP; 97116-GP; 97530-GP; C9113; J0330; J0694; J1100; J1200; J1885; J2001; J2060; J2250; J2270; J2405; J2543; J2710; J2765; J2916; J3010; J3370; J3490; J7030; J7050; J7060; J7120; Q0163; Q9963; Q9967